=== PATIENT | female | born 1995 | race Caucasian/White ===

== ENCOUNTER → 2018-05-17 | Outpatient (CLI) | payer OTHER, BC ==
[~2018-05-17] MED LIST: GADOBUTROL 7.5 MMOL/7.5 ML PFS ONE
== END | disposition home or self-care (01) ==
LOC: CFH 08:40
PROVIDERS: ATTEND Registered Nurse
DX: G43.809 Other migraine, not intractable, without status migrainosus (principal)
CPT/HCPCS: 70553; A9585

== ENCOUNTER → 2018-06-13 | Outpatient (CLI) | payer OTHER, BC | END | disposition home or self-care (01) | LOC: CFH 08:41 | PROVIDERS: ATTEND Registered Nurse | DX: M50.30 Other cervical disc degeneration, unspecified cervical region (principal); M50.221 Other cervical disc displacement at C4-C5 level; G62.9 Polyneuropathy, unspecified | CPT/HCPCS: 72156; A9585 ==